=== PATIENT | female | born 1970 | race Caucasian/White ===

== ENCOUNTER 2017-12-01 22:47 | Inpatient (IN) | payer SELFPAY ==
[~2017-12-01] VITALS: Ht 152.4 cm; Wt 72.8 kg
[2017-12-01 23:20] VITALS: BP_SYST 181
[2017-12-02] MEDS ORDERED: ENALAPRILAT DIHYDRATE 1.25 MG/ML VIAL IVP ONE (00:15)
[2017-12-02] MEDS ORDERED: MORPHINE 4 MG/ML INJ. SYRINGE IVP ONE (00:15)
[2017-12-02 00:55] LABS: BILIRUBIN,URINE NEGATIVE (NEGATIVE); BLOOD, URINE 2+ (NEGATIVE); CLARITY/URINE CLEAR (CLEAR); COLOR,URINE YELLOW (YELLOW); GLUCOSE,URINE 2+ (NEGATIVE); KETONES,URINE NEGATIVE (NEGATIVE); LEUKOCYTE ESTERASE ,URINE NEGATIVE (NEGATIVE); NITRITE, URINE NEGATIVE (NEGATIVE); PROTEIN URINE 3+ (NEGATIVE); UROBILINOGEN,URINE 0.2 (0.2-1.0)
[2017-12-02 01:06] LABS: BACTERIA,URINE FEW /HPF (None Seen); MUCUS,URINE None Seen /LPF (None Seen)
[2017-12-02 01:23] LABS: HEMATOCRIT 33.1 % (36-48); HEMOGLOBIN 11.1 g/dL (12.0-16.0); MEAN CORPUSCULAR HEMOGLOBIN 31 pg (27-31); MEAN CORPUSCULAR HGB CONC 33 % (32-36); MEAN CORPUSCULAR VOLUME 94 fL (79.0-98.0); PLATELET COUNT (AUTO) 331 K/uL (130-430); RED BLOOD CELL COUNT(AUTO) 3.51 MIL/uL (4.2-6.2); RED CELL DISTRIBUTION WIDTH 12.5 % (9.0-15.0)
[2017-12-02 01:25] LABS: CALCIUM 8.5 mg/dL (8.4-11.0); POTASSIUM 4.1 mmol/L (3.5-5.1)
[2017-12-02 01:30] LABS: INR 0.9 (0.8-1.2); PROTHROMBIN TIME 8.8 SECS (9.5-12.5)
[2017-12-02 01:31] LABS: ALBUMIN 1.5 g/dL (3.4-4.8); TOTAL BILIRUBIN 0.1 mg/dL (0.0-1.0)
[2017-12-02 01:40] LABS: CREATININE 8.61 mg/dL (0.55-1.30)
[2017-12-02] MEDS ORDERED: NIFE-2 PO (01:43)
[2017-12-02] MEDS ORDERED: BUME1TAB4 PO (01:43)
[2017-12-02 02:00] LABS: BAND % (MANUAL) 0 % (0-6); EOSINOPHILS % (MANUAL) 6 % (0-7); LYMPHOCYTES % (MANUAL) 17 % (20-46); MONOCYTES % (MANUAL) 4 % (0-11)
[2017-12-02] MEDS ORDERED: ONDANSETRON HCL 4 MG/2 ML VIAL IVP ONE (02:00)
[2017-12-02 02:01] LABS: BASOPHILS % (MANUAL) 0 % (0-2)
[2017-12-02] MEDS ORDERED: ALBUTEROL SULFATE 0.083% 2.5 MG/3 ML VIAL.NEB INH PRN (04:15)
[2017-12-02] MEDS ORDERED: MAGNESIUM SULFATE 50 ML IV PRN (04:15)
[2017-12-02] MEDS ORDERED: ZOLPIDEM TARTRATE 5 MG TABLET PO PRN (04:15)
[2017-12-02] MEDS ORDERED: DEXTROSE 50% JECT 50 ML DISP.SYRIN IVP PRN (04:15)
[2017-12-02] MEDS ORDERED: MUPIROCIN 2% TOPICAL OINTMENT 22 GM NS PRN (04:15)
[2017-12-02] MEDS ORDERED: DOCUSATE SODIUM 100 MG CAPSULE PO PRN (04:15)
[2017-12-02] MEDS ORDERED: hydrALAZINE HCL 20 MG/ML VIAL IVP ONE (04:15)
[2017-12-02] MEDS ORDERED: POTASSIUM CHLORIDE 20 MEQ TAB.PRT.SR PO PRN (04:15)
[2017-12-02] MEDS ORDERED: MORPHINE 2 MG/ML INJ. SYRINGE IVP PRN (04:15)
[2017-12-02] MEDS ORDERED: ONDANSETRON HCL 4 MG/2 ML VIAL IVP PRN ×2 (04:15→06:00)
[2017-12-02] MEDS ORDERED: LORazepam 2 MG/ML VIAL IVP PRN (04:15)
[2017-12-02] MEDS ORDERED: hydrALAZINE HCL 20 MG/ML VIAL IVP PRN (04:30)
[2017-12-02 04:31] VITALS: BP_SYST 160
[2017-12-02 05:07] VITALS: BP_SYST 187
[2017-12-02] MEDS: INSULIN ASPART 100 UNITS/ML, 10 ML VIAL (NovoLOG) SUBCUT PRN ×3 (06:49→17:24)
[2017-12-02] MEDS: NORMAL SALINE 5 ML DISP.SYRIN IVF SCH ×3 (06:51→21:21)
[2017-12-02 08:00] VITALS: BP_SYST 150
[2017-12-02] MEDS: NEPHROVITE, (FOLIC ACID/VITAMIN B COMP W-C 1 TAB) PO SCH (08:07)
[2017-12-02] MEDS: hydrALAZINE HCL 25 MG TABLET PO SCH ×3 (08:08→21:20)
[2017-12-02 08:53] LABS: PHOSPHORUS 6.4 mg/dL (2.7-4.5); URIC ACID 5.3 mg/dL (2.4-7.0)
[2017-12-02] MEDS ORDERED: NIFEDIPINE 30 MG TAB.ER.24 PO SCH (09:00)
[2017-12-02] MEDS ORDERED: BUMETANIDE 1 MG TABLET PO SCH (09:00)
[2017-12-02] MEDS ORDERED: NACL 0.9% 1,000 ML IV SCH (10:00)
[2017-12-02 12:00] VITALS: BP_SYST 181
[2017-12-02] MEDS ORDERED: CEFAZOLIN 2 GM IVPB PREMIX 50 ML IV ONE (14:05)
[2017-12-02] MEDS ORDERED: HEPARIN SODIUM,PORCINE/NS/PF 1,000 UNITS/500 ML BAG IV ONE (14:05)
[2017-12-02] MEDS ORDERED: PROPOFOL 200MG/ 20ML VIAL (DIPRIVAN) IV ONE (14:05)
[2017-12-02] MEDS ORDERED: LIDOCAINE 1% 10 MG/ML, 20 ML MDV INJ ONE (14:05)
[2017-12-02] MEDS ORDERED: MIDAZOLAM HCL 5 MG/5 ML VIAL IVP ONE (14:05)
[2017-12-02] MEDS ORDERED: HEPARIN SODIUM, PORCINE 10,000 UNITS/ 10 ML VIAL MC ONE (14:05)
[2017-12-02 14:40] LABS: BARBITURATE, URINE NEGATIVE (NEG <=200); BENZODIAZEPINE, URINE NEGATIVE (NEG <=150); CANNABINOID, URINE NEGATIVE (NEG <=50); COCAINE, URINE NEGATIVE (NEG <=150); METHAMPHETAMINES SCREEN,URINE NEGATIVE (NEG <=500); OPIATE, URINE NEGATIVE (NEG <=100); PHENCYCLIDINE SCREEN,URINE NEGATIVE (NEG <=25); UR TRICYCLIC ANTIDEPRESSANTS NEGATIVE (NEG <=300); URINE AMPHETAMINE NEGATIVE (NEG <=500); URINE METHADONE NEGATIVE (NEG <=200); URINE OXYCODONE SCREEN NEGATIVE (NEG <=100); URINE PROPOXYPHENE SCREEN NEGATIVE (NEG <=300)
[2017-12-02] MEDS ORDERED: FERR-31 PO (14:56)
[2017-12-02] MEDS ORDERED: PIOG15TA8 PO (14:57)
[2017-12-02 16:00] VITALS: BP_SYST 176
[2017-12-02] MEDS ORDERED: NIFEDIPINE 60 MG TABLET.SA (PROCARDIA XL 60 MG) PO ONE (18:45)
[2017-12-02 20:54] VITALS: BP_SYST 182
[2017-12-02] MEDS: D5NS 1,000 ML IV SCH (21:19)
[2017-12-03 00:03] VITALS: BP_SYST 148; BP_SYST 81
[2017-12-03 01:35] VITALS: BP_SYST 136
[2017-12-03] MEDS: NORMAL SALINE 5 ML DISP.SYRIN IVF SCH ×3 (06:04→21:32)
[2017-12-03] MEDS: hydrALAZINE HCL 25 MG TABLET PO SCH ×3 (06:05→21:31)
[2017-12-03 07:18] LABS: CALCIUM 8.1 mg/dL (8.4-11.0); POTASSIUM 3.8 mmol/L (3.5-5.1)
[2017-12-03 07:19] LABS: BASOPHILS # (AUTO) 0.1 K/uL (0.0-0.2); BASOPHILS % (AUTO) 0.7 % (0.0-2.0); EOSINOPHILS # (AUTO) 0.1 K/uL (0.0-0.4); EOSINOPHILS % (AUTO) 1.9 % (0.0-4.0); HEMATOCRIT 32.8 % (36-48); HEMOGLOBIN 10.5 g/dL (12.0-16.0); LYMPHOCYTES # (AUTO) 2.4 K/uL (1.0-5.5); LYMPHOCYTES % (AUTO) 32.6 % (20.5-51.5); MEAN CORPUSCULAR HEMOGLOBIN 31 pg (27-31); MEAN CORPUSCULAR HGB CONC 32 % (32-36); MEAN CORPUSCULAR VOLUME 95 fL (79.0-98.0); MONOCYTES # (AUTO) 0.5 K/uL (0.0-1.0); MONOCYTES % (AUTO) 6.7 % (1.7-9.3); NEUTROPHILS # (AUTO) 4.1 K/uL (1.8-7.7); NEUTROPHILS % (AUTO) 58.1 % (40.0-70.0); PLATELET COUNT (AUTO) 317 K/uL (130-430); RED BLOOD CELL COUNT(AUTO) 3.43 MIL/uL (4.2-6.2); RED CELL DISTRIBUTION WIDTH 13.2 % (9.0-15.0); WHITE BLOOD COUNT (AUTO) 7.2 K/uL (4.8-10.8)
[2017-12-03 07:24] LABS: PHOSPHORUS 7.2 mg/dL (2.7-4.5)
[2017-12-03 08:00] VITALS: BP_SYST 133
[2017-12-03] MEDS: NEPHROVITE, (FOLIC ACID/VITAMIN B COMP W-C 1 TAB) PO SCH (08:50)
[2017-12-03] MEDS: NIFEDIPINE 30 MG TAB.ER.24 PO SCH (08:50)
[2017-12-03] MEDS: D5NS 1,000 ML IV SCH ×2 (09:55→23:11)
[2017-12-03] MEDS: INSULIN ASPART 100 UNITS/ML, 10 ML VIAL (NovoLOG) SUBCUT PRN ×2 (11:34→20:27)
[2017-12-03 15:27] VITALS: BP_SYST 149
[2017-12-03 18:26] VITALS: BP_SYST 155
[2017-12-03 20:56] VITALS: BP_SYST 141
[2017-12-04] MEDS: hydrALAZINE HCL 25 MG TABLET PO SCH ×3 (06:00→21:15)
[2017-12-04] MEDS: NORMAL SALINE 5 ML DISP.SYRIN IVF SCH ×3 (06:05→21:15)
[2017-12-04 06:56] LABS: BASOPHILS # (AUTO) 0.1 K/uL (0.0-0.2); BASOPHILS % (AUTO) 1.4 % (0.0-2.0); EOSINOPHILS # (AUTO) 0.2 K/uL (0.0-0.4); EOSINOPHILS % (AUTO) 2.7 % (0.0-4.0); HEMATOCRIT 31.5 % (36-48); HEMOGLOBIN 10.1 g/dL (12.0-16.0); LYMPHOCYTES # (AUTO) 2.2 K/uL (1.0-5.5); MEAN CORPUSCULAR HEMOGLOBIN 30 pg (27-31); MEAN CORPUSCULAR HGB CONC 32 % (32-36); MEAN CORPUSCULAR VOLUME 95 fL (79.0-98.0); MONOCYTES # (AUTO) 0.4 K/uL (0.0-1.0); MONOCYTES % (AUTO) 6.1 % (1.7-9.3); NEUTROPHILS # (AUTO) 4.1 K/uL (1.8-7.7); NEUTROPHILS % (AUTO) 58.8 % (40.0-70.0); PLATELET COUNT (AUTO) 316 K/uL (130-430); RED BLOOD CELL COUNT(AUTO) 3.33 MIL/uL (4.2-6.2); RED CELL DISTRIBUTION WIDTH 13.1 % (9.0-15.0)
[2017-12-04 07:13] LABS: POTASSIUM 3.9 mmol/L (3.5-5.1)
[2017-12-04 07:28] LABS: CREATININE 8.97 mg/dL (0.55-1.30)
[2017-12-04 08:30] VITALS: BP_SYST 153
[2017-12-04] MEDS: NEPHROVITE, (FOLIC ACID/VITAMIN B COMP W-C 1 TAB) PO SCH (09:00)
[2017-12-04] MEDS: D5NS 1,000 ML IV SCH (10:51)
[2017-12-04] MEDS ORDERED: TUBERCULIN,PURIF.PROT.DERIV. 0.1 ML SYR ID ONE (12:00)
[2017-12-04 12:49] VITALS: BP_SYST 158
[2017-12-04] MEDS ORDERED: ONDANSETRON HCL 4 MG/2 ML VIAL IVP PRN (15:00)
[2017-12-04] MEDS ORDERED: fentaNYL CITRATE/PF 100 MCG/2 ML AMP IVP PRN ×2 (15:00)
[2017-12-04] MEDS ORDERED: fentaNYL CITRATE/PF 100 MCG/2 ML AMP ONE (15:18)
[2017-12-04] MEDS ORDERED: MIDAZOLAM HCL 2 MG/2 ML VIAL (VERSED) ONE (15:39)
[2017-12-04] MEDS ORDERED: ONDANSETRON HCL 4 MG/2 ML VIAL ONE (15:40)
[2017-12-04] MEDS ORDERED: hydrALAZINE HCL 20 MG/ML VIAL IVP ONE (15:45)
[2017-12-04] MEDS ORDERED: hydrALAZINE HCL 20 MG/ML VIAL ONE (15:50)
[2017-12-04 16:57] VITALS: BP_SYST 114
[2017-12-04] MEDS ORDERED: ALTEPLASE 2 MG VIAL MC ONE (17:15)
[2017-12-04] MEDS: NIFEDIPINE 30 MG TAB.ER.24 PO SCH (18:13)
[2017-12-04 20:00] VITALS: BP_SYST 151
[2017-12-04] MEDS: INSULIN ASPART 100 UNITS/ML, 10 ML VIAL (NovoLOG) SUBCUT PRN (21:18)
[2017-12-05 00:33] VITALS: BP_SYST 153
[2017-12-05] MEDS: D5NS 1,000 ML IV SCH ×2 (05:23→13:28)
[2017-12-05] MEDS: NORMAL SALINE 5 ML DISP.SYRIN IVF SCH ×3 (06:00→21:35)
[2017-12-05 06:29] LABS: BASOPHILS % (AUTO) 0.7 % (0.0-2.0); EOSINOPHILS % (AUTO) 0.6 % (0.0-4.0); HEMATOCRIT 29.5 % (36-48); HEMOGLOBIN 9.1 g/dL (12.0-16.0); LYMPHOCYTES # (AUTO) 1.8 K/uL (1.0-5.5); LYMPHOCYTES % (AUTO) 26.5 % (20.5-51.5); MEAN CORPUSCULAR HEMOGLOBIN 29 pg (27-31); MEAN CORPUSCULAR HGB CONC 31 % (32-36); MEAN CORPUSCULAR VOLUME 94 fL (79.0-98.0); MONOCYTES # (AUTO) 0.6 K/uL (0.0-1.0); MONOCYTES % (AUTO) 8.4 % (1.7-9.3); NEUTROPHILS # (AUTO) 4.5 K/uL (1.8-7.7); NEUTROPHILS % (AUTO) 63.8 % (40.0-70.0); PLATELET COUNT (AUTO) 278 K/uL (130-430); RED BLOOD CELL COUNT(AUTO) 3.13 MIL/uL (4.2-6.2); RED CELL DISTRIBUTION WIDTH 13.1 % (9.0-15.0); WHITE BLOOD COUNT (AUTO) 6.9 K/uL (4.8-10.8)
[2017-12-05] MEDS: hydrALAZINE HCL 25 MG TABLET PO SCH ×3 (06:40→21:40)
[2017-12-05 06:56] LABS: ALBUMIN 0.9 g/dL (3.4-4.8); CALCIUM 7.9 mg/dL (8.4-11.0); POTASSIUM 3.9 mmol/L (3.5-5.1); TOTAL BILIRUBIN 0.1 mg/dL (0.0-1.0)
[2017-12-05 07:02] LABS: CREATININE 8.22 mg/dL (0.55-1.30)
[2017-12-05 08:10] VITALS: BP_SYST 170
[2017-12-05] MEDS: NIFEDIPINE 30 MG TAB.ER.24 PO SCH (09:38)
[2017-12-05] MEDS: NEPHROVITE, (FOLIC ACID/VITAMIN B COMP W-C 1 TAB) PO SCH (09:38)
[2017-12-05 11:20] LABS: HEPATITIS A AB, IgM Negative (Negative); HEPATITIS B CORE AB, IgM Negative (Negative); HEPATITIS B SURFACE AG Negative (Negative)
[2017-12-05 12:15] VITALS: BP_SYST 184
[2017-12-05 16:00] VITALS: BP_SYST 140
[2017-12-05] MEDS ORDERED: HEPARIN SODIUM, PORCINE 10,000 UNITS/ 10 ML VIAL MC ONE ×3 (18:30→21:00)
[2017-12-05] MEDS ORDERED: HEPARIN SODIUM,PORCINE 5000 UNITS/ML VIAL ONE (20:38)
[2017-12-05 20:45] VITALS: BP_SYST 141
[2017-12-06 00:49] VITALS: BP_SYST 158
[2017-12-06] MEDS: D5NS 1,000 ML IV SCH (02:25)
[2017-12-06] MEDS: hydrALAZINE HCL 25 MG TABLET PO SCH ×2 (06:06→14:32)
[2017-12-06] MEDS: NORMAL SALINE 5 ML DISP.SYRIN IVF SCH (06:08)
[2017-12-06 07:32] LABS: BASOPHILS # (AUTO) 0.1 K/uL (0.0-0.2); BASOPHILS % (AUTO) 0.8 % (0.0-2.0); EOSINOPHILS # (AUTO) 0.2 K/uL (0.0-0.4); EOSINOPHILS % (AUTO) 3.1 % (0.0-4.0); HEMATOCRIT 28.9 % (36-48); HEMOGLOBIN 9.7 g/dL (12.0-16.0); LYMPHOCYTES # (AUTO) 2.1 K/uL (1.0-5.5); LYMPHOCYTES % (AUTO) 31.3 % (20.5-51.5); MEAN CORPUSCULAR HEMOGLOBIN 31 pg (27-31); MEAN CORPUSCULAR HGB CONC 34 % (32-36); MEAN CORPUSCULAR VOLUME 93 fL (79.0-98.0); MONOCYTES # (AUTO) 0.6 K/uL (0.0-1.0); MONOCYTES % (AUTO) 8.5 % (1.7-9.3); NEUTROPHILS # (AUTO) 3.6 K/uL (1.8-7.7); NEUTROPHILS % (AUTO) 56.3 % (40.0-70.0); PLATELET COUNT (AUTO) 229 K/uL (130-430); RED BLOOD CELL COUNT(AUTO) 3.12 MIL/uL (4.2-6.2); RED CELL DISTRIBUTION WIDTH 13.2 % (9.0-15.0); WHITE BLOOD COUNT (AUTO) 6.6 K/uL (4.8-10.8)
[2017-12-06 07:43] VITALS: BP_SYST 165
[2017-12-06 08:00] VITALS: BP_SYST 153
[2017-12-06 08:31] LABS: CALCIUM 7.8 mg/dL (8.4-11.0); CREATININE 5.76 mg/dL (0.55-1.30); POTASSIUM 3.8 mmol/L (3.5-5.1)
[2017-12-06] MEDS: NEPHROVITE, (FOLIC ACID/VITAMIN B COMP W-C 1 TAB) PO SCH (08:54)
[2017-12-06] MEDS: NIFEDIPINE 30 MG TAB.ER.24 PO SCH (08:54)
[2017-12-06 11:43] VITALS: BP_SYST 132
[2017-12-06] MEDS: INSULIN ASPART 100 UNITS/ML, 10 ML VIAL (NovoLOG) SUBCUT PRN (12:20)
[2017-12-06 16:49] VITALS: BP_SYST 128
[2017-12-06] MEDS ORDERED: EPOETIN ALFA 10,000 UNITS/ML VIAL SUBCUT SCH (17:00)
[2017-12-06 17:28] VITALS: BP_SYST 128
== END 2017-12-06 19:05 | disposition home or self-care (01) | DRG 73 ==
LOC: SED 22:47 → STU 12-02 03:29
PROVIDERS: ADMIT General Practice; ATTEND General Practice
PROC: 02HV33Z Insertion of Infusion Device into Superior Vena Cava, Percutaneous Approach (ICD-10-PCS; 2017-12-04)
PROC: B5181ZA Fluoroscopy of Superior Vena Cava using Low Osmolar Contrast, Guidance (ICD-10-PCS; 2017-12-04)
PROC: B548ZZA Ultrasonography of Superior Vena Cava, Guidance (ICD-10-PCS; 2017-12-04)
PROC: 5A1D70Z Performance of Urinary Filtration, Intermittent, Less than 6 Hours Per Day (ICD-10-PCS; principal; 2017-12-04 14:00)
PROC: 5A1D70Z Performance of Urinary Filtration, Intermittent, Less than 6 Hours Per Day (ICD-10-PCS; 2017-12-05)
PROC: 5A1D70Z Performance of Urinary Filtration, Intermittent, Less than 6 Hours Per Day (ICD-10-PCS; 2017-12-05)
PROC: 05PY33Z Removal of Infusion Device from Upper Vein, Percutaneous Approach (ICD-10-PCS; 2017-12-05)
PROC: 05H633Z Insertion of Infusion Device into Left Subclavian Vein, Percutaneous Approach (ICD-10-PCS; 2017-12-05)
PROC: 02HV33Z Insertion of Infusion Device into Superior Vena Cava, Percutaneous Approach (ICD-10-PCS; 2017-12-06)
DX: E11.43 Type 2 diabetes mellitus with diabetic autonomic (poly)neuropathy (principal); E43 Unspecified severe protein-calorie malnutrition; N17.0 Acute kidney failure with tubular necrosis; N18.6 End stage renal disease; I12.0 Hypertensive chronic kidney disease with stage 5 chronic kidney disease or end stage renal disease; D68.59 Other primary thrombophilia; N25.81 Secondary hyperparathyroidism of renal origin; T82.41XA Breakdown (mechanical) of vascular dialysis catheter, initial encounter; K52.9 Noninfective gastroenteritis and colitis, unspecified; E11.22 Type 2 diabetes mellitus with diabetic chronic kidney disease; E11.65 Type 2 diabetes mellitus with hyperglycemia; I16.0 Hypertensive urgency; K31.84 Gastroparesis; E11.21 Type 2 diabetes mellitus with diabetic nephropathy; E86.0 Dehydration; D63.1 Anemia in chronic kidney disease; Y82.8 Other medical devices associated with adverse incidents; E83.39 Other disorders of phosphorus metabolism; Z99.2 Dependence on renal dialysis; Z79.899 Other long term (current) drug therapy; Z68.31 Body mass index [BMI] 31.0-31.9, adult; Z79.4 Long term (current) use of insulin; Z82.49 Family history of ischemic heart disease and other diseases of the circulatory system; Z84.1 Family history of disorders of kidney and ureter; Y92.89 Other specified places as the place of occurrence of the external cause
CPT/HCPCS: 36415; 71045; 76000; 76770; 76857; 78226; 80048; 80053; 80307; 81000-TC; 82570-TC; 82962; 83036; 83690-TC; 83735-TC; 83880; 84100-TC; 84484; 84550-TC; 84702-TC; 85007; 85025; 85027; 85610-TC; 85730-TC; 86480; 86580; 86705; 86709; 87081; 87340; 90935; 90937; 93970; 96374; 96375; 99285; A9537; C1750; J0360; J0690; J0885; J1644; J1815; J2001; J2250; J2270; J2405; J2704; J2997; J3010; J3465; J7030; J7042

== ENCOUNTER 2021-05-03 14:08 | Emergency (ER) | payer OTHER, MEDICAID, SELFPAY ==
[~2021-05-03] VITALS: Ht 152.4 cm; Wt 64.9 kg
[~2021-05-03 14:08] MED LIST: BUME1TAB8 PO; FERR-31 PO
[2021-05-03 14:13] VITALS: BP_SYST 153
[2021-05-03] MEDS ORDERED: cefTRIAXone 1 GM IVPB PREMIX 50 ML IV ONE (14:45)
[2021-05-03] MEDS ORDERED: ONDANSETRON HCL 4 MG/2 ML VIAL IVP ONE ×2 (15:00→21:15)
[2021-05-03] MEDS ORDERED: MAG HYDROX/AL HYDROX/SIMETH 30 ML, LIDOCAINE VISCOUS 2% 15ML (PO) 15 ML, DICYCLOMINE HC... PO ONE ×6 (15:00→20:15)
[2021-05-03] MEDS ORDERED: NS 500 ML IV ONE (15:00)
[2021-05-03 15:18] LABS: BASOPHILS % (AUTO) 0.5 % (0.0-2.0); EOSINOPHILS # (AUTO) 0.2 K/uL (0.0-0.4); EOSINOPHILS % (AUTO) 2.3 % (0.0-4.0); HEMATOCRIT 30.5 % (36-48); HEMOGLOBIN 10.4 g/dL (12.0-16.0); LYMPHOCYTES % (AUTO) 11.8 % (20.5-51.5); MEAN CORPUSCULAR HEMOGLOBIN 33 pg (27-31); MEAN CORPUSCULAR HGB CONC 34 % (32-36); MEAN CORPUSCULAR VOLUME 96 fL (79.0-98.0); MONOCYTES # (AUTO) 0.6 K/uL (0.0-1.0); MONOCYTES % (AUTO) 7.2 % (1.7-9.3); NEUTROPHILS # (AUTO) 6.4 K/uL (1.8-7.7); NEUTROPHILS % (AUTO) 78.2 % (40.0-70.0); PLATELET COUNT (AUTO) 263 K/uL (130-430); RED BLOOD CELL COUNT(AUTO) 3.19 MIL/uL (4.2-6.2); RED CELL DISTRIBUTION WIDTH 13.7 % (9.0-15.0); WHITE BLOOD COUNT (AUTO) 8.1 K/uL (4.8-10.8)
[2021-05-03 15:49] LABS: CALCIUM 10.1 mg/dL (8.4-11.0); CREATININE 6.55 mg/dL (0.55-1.30); POTASSIUM 4.3 mmol/L (3.5-5.1)
[2021-05-03 15:55] LABS: ALBUMIN 4.2 g/dL (3.4-4.8); TOTAL BILIRUBIN 0.5 mg/dL (0.0-1.0)
[2021-05-03 16:51] LABS: PROTHROMBIN TIME 9.9 SECS (9.5-12.5)
[2021-05-03 17:39] LABS: BILIRUBIN,URINE NEGATIVE (NEGATIVE); CLARITY/URINE CLEAR (CLEAR); COLOR,URINE YELLOW (YELLOW); GLUCOSE,URINE 1+ (NEGATIVE); KETONES,URINE NEGATIVE (NEGATIVE); LEUKOCYTE ESTERASE ,URINE NEGATIVE (NEGATIVE); NITRITE, URINE NEGATIVE (NEGATIVE); PH,URINE 8.5 (5.0-8.0); PROTEIN URINE 2+ (NEGATIVE); UROBILINOGEN,URINE 0.2 (0.2-1.0)
[2021-05-03 17:49] LABS: BLOOD, URINE TRACE (NEGATIVE)
[2021-05-03 17:50] LABS: BACTERIA,URINE RARE /HPF (None Seen); RBC,URINE 0-3 /HPF (0-3)
[2021-05-03 17:51] LABS: MUCUS,URINE 1+ /LPF (None Seen)
[2021-05-03] MEDS ORDERED: MORPHINE 4 MG INJ. 4 MG/ML VIAL IVP ONE (19:45)
[2021-05-03] MEDS ORDERED: FAMOTIDINE PF 20 MG/2 ML VIAL IVP ONE (20:15)
[2021-05-03] MEDS ORDERED: ONDANSETRON HCL 4 MG/2 ML VIAL ONE (21:03)
[2021-05-03 21:08] VITALS: BP_SYST 175
== END 2021-05-03 21:00 | disposition short-term general hospital (02) ==
LOC: SED 14:08
DX: R10.13 Epigastric pain (principal); R11.2 Nausea with vomiting, unspecified; I10 Essential (primary) hypertension; E11.9 Type 2 diabetes mellitus without complications; Z79.899 Other long term (current) drug therapy; Z20.822 Contact with and (suspected) exposure to COVID-19
CPT/HCPCS: 36415; 71045; 74176; 76376; 80053; 81000; 83605; 83690; 84484; 85025; 85610; 87040; 87086; 87426; 93005; 96365; 96375; 96376; 99285; J0696; J2001; J2270; J2405; J3490